=== PATIENT | female | born 1990 | race Native Hawaiian/Other Pacific Islander ===

== ENCOUNTER 2021-08-16 15:19 | Emergency (ER) | payer OTHER ==
[~2021-08-16] VITALS: Ht 157.5 cm; Wt 59.0 kg
[2021-08-16] MEDS ORDERED: CEPH500 PO (15:58)
[2021-08-16] MEDS ORDERED: IBUP800 PO (16:08)
[2021-08-16] MEDS ORDERED: ONDA4ODT MM (16:08)
== END 2021-08-16 16:20 | disposition home or self-care (01) ==
LOC: ER 15:19
DX: L02.414 Cutaneous abscess of left upper limb (principal)
CPT/HCPCS: 10060; 99282-25; A9270